=== PATIENT | female | born 1940 | race Hispanic/Latino ===

== ENCOUNTER 2017-08-07 08:21 | Day surgery (SDC) | payer OTHER ==
[2017-08-07 09:19] LABS: Basophils % (Auto) 1.2 % (0.0-1.8); Eosinophils % (Auto) 3.8 % (0.0-4.3); Hematocrit 35.4 % (30.3-42.9); Hemoglobin 11.7 gm/dl (10.1-14.3); Mean Corpuscular HGB Conc 33 % (30-34); Mean Corpuscular Hemoglobin 31 pg (28-32); Mean Corpuscular Volume 93 fl (79-97); Platelet Count 254 K/mm3 (140-440); White Blood Count 5.6 K/mm3 (4.5-11.0)
[2017-08-07 09:32] LABS: BUN/Creatinine Ratio 31.81; Calcium 10.2 mg/dL (8.4-10.2); Chloride 101.7 mmol/L (98-107); Potassium 3.5 mmol/L (3.6-5.0)
[2017-08-07 10:19] LABS: INR 0.97 (0.87-1.13)
[2017-08-07] MEDS ORDERED: ECOTRIN PO ONE (11:00)
[2017-08-07] MEDS ORDERED: NACL 0.9% 500 ML 500 ML IV SCH (11:00)
[2017-08-07] MEDS ORDERED: XYLOCAINE 2% INFILTRATI ONE (11:37)
[2017-08-07] MEDS ORDERED: CALAN ONE (11:37)
[2017-08-07] MEDS ORDERED: HEPARIN/NS 5000 UNIT/500ML(CATH LAB) 1,000 ML IR ONE (11:37)
[2017-08-07] MEDS ORDERED: HEPARIN 10,000 UNITS/10 ML ONE (11:37)
[2017-08-07] MEDS ORDERED: SUBLIMAZE ONE (11:38)
[2017-08-07] MEDS ORDERED: VERSED ONE (11:38)
[2017-08-07] MEDS ORDERED: D50W (25GM) Syringe IV ONE (11:45)
[2017-08-07] MEDS ORDERED: NITROGLYCERIN SYRINGE 3 ML ONE (12:27)
[2017-08-07 14:45] VITALS: BP 120/58
--- NOTE | 2017-08-07 15:17 | Cardiac Catherization Report ---
CARDIAC CATHETERIZATION INDICATION FOR PROCEDURE: The patient is a 76-year-old white female with history of longstanding diabetes mellitus, hypertension with frequent PVCs, and history of syncopal episodes, who has abnormal IV Lexiscan nuclear imaging showing mid inferior wall, apical inferior wall ischemia. Considering the above, the patient is scheduled for cardiac catheterization for definitive diagnosis and treatment. The patient is aware of the procedure, potential complications and the alternatives of therapy available. The patient received D50 prior to cardiac catheterization, her blood sugars being in 60s, but the patient is alert and oriented x 3. The patient is aware of the procedure, potential complications, and alternatives of therapy available. DESCRIPTION OF PROCEDURE: The patient was brought to the catheterization laboratory in a fasting condition. The right wrist area and forearm thoroughly cleansed with Betadine solution. Sterile drapes were applied. Local anesthesia was achieved using 2% Xylocaine. Right radial arterial puncture was made using 21-gauge arterial puncture needle. A 5-B[place] sheath was introduced. The patient received 5 mg of intra-arterial verapamil and 3000 units of intravenous heparin. A 5-[place]i multipurpose catheter was used to obtain the angiograms of the left ventricle done in DEMPSEY projection followed by angiograms of the left coronary artery in multiple views and angiograms of the right coronary artery in multiple views. Right coronary artery showed 50% smooth distal lesion. The patient received 100 of nitroglycerin intra intra-arterially in the right coronary artery and no significant change in the stenosis. At the end of the procedure, catheter and sheath were removed and good hemostasis was achieved with pressure bandage. Following findings were noted. HEMODYNAMICS: 1. Opening aortic pressure 144/56, left ventricular pressure 142/24. No gradient across the aortic valve. Estimated ejection fraction 55%. 2. Left ventriculogram done in DEMPSEY projection using hand injection showed normal sized left ventricle with normal contractility. End-diastolic and systolic volumes are normal. Mitral regurgitation could not be evaluated. 3. Left coronary artery arises normally from left coronary cusp, mild diffuse calcifications noted. LAD and circumflex artery and its branch are tortuous. LAD showed 40% smooth lesion in the distal part where the distal diagonal branch arises. Otherwise, rest of the LAD without significant disease. Circumflex artery and branch are very tortuous, but angiographically smooth and normal. Right coronary artery dominant vessel arises normally from right coronary cusp. There is a focal 40-50% smooth lesion distally. This rechanged unchanged with intra-arterial nitroglycerin. Overall, this dominant vessel has borderline 50% distal RCA lesion, otherwise rest of the vessels without significant disease. FINAL IMPRESSION: Normal sized left ventricle with normal contractility, moderate disease in the LAD and RCA. PLAN: At this time is to continue medical therapy and aggressive risk factor modification. Consider PCI of the RCA if she is symptomatic. Her main complaints at this time is syncopal episodes. Etiology of this is not clear. Her LV function is normal. We will continue amlodipine and beta ricco in addition to statins and aspirin. Procedure was uncomplicated. Good hemostasis was achieved using pressure bandage over the right radial artery. Findings were explained to the patient and family. JOB# [id number] JULIANN/RADHA
--- NOTE | 2017-08-07 16:26 | Short Stay Summary ---
Short Stay Documentation Date of service: 08/07/17 - History H&P: obtained from office - Allergies and Medications Current Medications: Allergies codeine Adverse Reaction (Verified 08/07/17 08:48) RASH,ITCHING Home Medications Medication Instructions Recorded Confirmed Last Taken Type AtorvaSTATin [Lipitor] 40 mg PO QHS #30 tab 08/07/17 Unknown Rx Lantus VIAL 12 units SC QHS 08/07/17 08/07/17 08/06/17 History Losartan-Hctz 100-25 mg Tab 1 tab PO DAILY 08/07/17 08/07/17 08/07/17 History Metoprolol [Lopressor TAB] 50 mg PO DAILY 08/07/17 08/07/17 08/07/17 History NovoLOG Flexpen 4 units SC AC 08/07/17 08/07/17 08/06/17 History Vitamin B Complex 1 tab PO DAILY 08/07/17 08/07/17 08/06/17 History amLODIPine [Norvasc] 10 mg PO DAILY 08/07/17 08/07/17 08/07/17 History Active Medications Sodium Chloride (Nacl 0.9% 500 Ml) 500 mls @ 50 mls/hr IV DIRECT FLAQUITO Stop: 08/07/17 20:59 Last Admin: 08/07/17 09:45 Dose: 50 mls/hr - Brief post op/procedure progress note Date of procedure: 08/07/17 Pre-op diagnosis: abnormal stress test Post-op diagnosis: other (CAD) Procedure: C - see cath report Anesthesia: local Estimated blood loss: none Condition: stable - Disposition Condition at discharge: Stable Disposition: DC-01 TO HOME OR SELFCARE - Discharge Diagnoses (1) Hypertension Status: Chronic Qualifiers: Hypertension type: H (2) Diabetes Status: Chronic Qualifiers: Diabetes mellitus type: D Diabetes mellitus complication status: D Diabetes mellitus complication detail: D Diabetic retinopathy severity: D Proliferative retinopathy type: P Diabetes mellitus macular edema: D Diabetes mellitus fdc insulin use: D Laterality: L Chronic kidney disease stage: C (3) Abnormal cardiovascular stress test Status: Chronic (4) Coronary artery disease Status: Chronic Qualifiers: Coronary Disease-Associated Artery/Lesion type: C [place] vs. transplanted heart: N Associated angina: A Short Stay Discharge Plan Activity: advance as tolerated Diet: low fat, low cholesterol, low salt Wound: open to air, keep clean and dry, per your surgeon's advice Follow up with: SAMIRA MAYO MD [Staff Physician] - 7 Days Forms: CardCath PCI D/C Instructions Prescriptions: AtorvaSTATin [Lipitor] 40 mg PO QHS #30 tab
== END 2017-08-07 08:22 | disposition home or self-care (01) ==
LOC: CATHLABREC 08:21
PROVIDERS: ATTEND Internal Medicine
DX: I25.10 Atherosclerotic heart disease of native coronary artery without angina pectoris (principal); E11.9 Type 2 diabetes mellitus without complications; I10 Essential (primary) hypertension; Z88.5 Allergy status to narcotic agent; Z79.4 Long term (current) use of insulin; Z79.899 Other long term (current) drug therapy
CPT/HCPCS: 36415; 51702; 80048; 82962; 85025; 85610; 85730; 93005; 93010; 93458; C1894; J1644; J2250; J3010; J7040; Q9967